=== PATIENT | female | born 1950 | race Caucasian/White ===

== ENCOUNTER 2022-03-24 06:22 | Observation (INO) ==
[2022-03-24] MEDS ORDERED: Clindamycin 900 MG/50 ML 900 MG/50 ML IV.SOLN IVPB ONE (06:44)
[2022-03-24] MEDS ORDERED: Ringers Solution, Lactated 1,000 ML IVC SCH (06:45)
[2022-03-24] MEDS ORDERED: *HR* HYDROmorphone PF 0.5 MG/0.5 ML SYRINGE IVP PRN (06:50)
[2022-03-24] MEDS ORDERED: Ondansetron 4 MG/2 ML VIAL IVP PRN ×2 (06:50→14:48)
[2022-03-24] MEDS ORDERED: *HR* OxyCODONE Immed Rel 5 MG TABLET PO ONE (07:00)
[2022-03-24] MEDS ORDERED: Acetaminophen IV 1,000 MG/100 ML BAG IVPB ONE (07:00)
[2022-03-24] MEDS ORDERED: Famotidine 20 MG/2 ML VIAL IVP ONE (07:00)
[2022-03-24] MEDS ORDERED: tiZANidine 4 MG TABLET PO SCH (07:00)
[2022-03-24] MEDS ORDERED: Pregabalin 75 MG CAPSULE PO ONE (07:00)
[2022-03-24] MEDS ORDERED: *HR* Rocuronium Bromide 50 MG/5 ML VIAL ONE (07:04)
[2022-03-24] MEDS ORDERED: Ondansetron 4 MG/2 ML VIAL ONE (07:04)
[2022-03-24] MEDS ORDERED: Lidocaine HCL 4 ML Topical Solution (Laryng-O-Jet Kit Sterile Pak) TP ONE (07:04)
[2022-03-24] MEDS ORDERED: Lidocaine -MPF 2% 5 ML VIAL ONE (07:04)
[2022-03-24] MEDS ORDERED: *HR* Succinylcholine 200 MG/10 ML VIAL IVP ONE (07:04)
[2022-03-24] MEDS ORDERED: Sugammadex Sodium 200 MG/2 ML VIAL IV ONE (07:04)
[2022-03-24] MEDS ORDERED: *HR* Propofol 200 MG/20 ML VIAL IVP ONE (07:04)
[2022-03-24] MEDS ORDERED: *HR* Remifentanil 2 MG VIAL IVP ONE (07:08)
[2022-03-24] MEDS ORDERED: EPHEDrine 50 MG/ML VIAL ONE (07:23)
[2022-03-24] MEDS ORDERED: Vancomycin 1,000 MG VIAL ONE (07:45)
[2022-03-24] MEDS ORDERED: *HR* FentaNYL (PF) 100 MCG/2 ML VIAL ONE (08:18)
[2022-03-24] MEDS ORDERED: *HR* Vasopressin 20 UNIT/ML VIAL ONE (08:22)
[2022-03-24] MEDS ORDERED: *HR* HYDROMORPHONE 2 MG/ML VIAL ONE (12:23)
[2022-03-24] MEDS: *HR* FentaNYL (PF) 100 MCG/2 ML VIAL IVP PRN ×3 (13:16→13:40)
[2022-03-24] MEDS ORDERED: Ondansetron ODT 4 MG TAB.RAPDIS SL PRN (14:48)
[2022-03-24] MEDS ORDERED: Acetaminophen 325 MG TABLET PO PRN (14:48)
[2022-03-24] MEDS ORDERED: RANITIDINE HCL 150 MG PO PRN (14:48)
[2022-03-24] MEDS ORDERED: Naloxone 0.4 MG/ML INJ IVP PRN (14:48)
[2022-03-24] MEDS: Clindamycin 900 MG/50 ML 900 MG/50 ML IV.SOLN IVPB SCH (15:47)
[2022-03-24] MEDS: *HR* OxyCODONE Immed Rel 5 MG TABLET PO PRN ×2 (15:47→20:26)
[2022-03-24] MEDS: Gabapentin 400 MG CAPSULE PO SCH ×2 (20:17→20:26)
[2022-03-25] MEDS: *HR* HYDROcodone/Acet 5/325 mg TABLET PO PRN (00:02)
[2022-03-25] MEDS: Clindamycin 900 MG/50 ML 900 MG/50 ML IV.SOLN IVPB SCH (00:10)
[2022-03-25] MEDS: Ringers Solution, Lactated 1,000 ML IVC SCH ×3 (00:11→19:42)
[2022-03-25] MEDS: *HR* OxyCODONE Immed Rel 5 MG TABLET PO PRN ×6 (02:02→23:04)
[2022-03-25] MEDS: Furosemide 20 MG TABLET PO SCH (09:08)
[2022-03-25] MEDS: amLODIPine 5 MG TABLET PO SCH (09:08)
[2022-03-25] MEDS: Gabapentin 400 MG CAPSULE PO SCH ×3 (09:08→19:49)
[2022-03-25] MEDS: Lisinopril-HCTZ 20-12.5mg TABLET PO SCH ×2 (09:11→10:25)
[2022-03-25] MEDS: tiZANidine 4 MG TABLET PO PRN (10:32)
[2022-03-26] MEDS: *HR* OxyCODONE Immed Rel 5 MG TABLET PO PRN ×3 (03:09→13:27)
[2022-03-26] MEDS: Furosemide 20 MG TABLET PO SCH (07:41)
[2022-03-26] MEDS: Gabapentin 400 MG CAPSULE PO SCH ×3 (07:42→20:43)
[2022-03-26] MEDS: amLODIPine 5 MG TABLET PO SCH (07:47)
[2022-03-26] MEDS: tiZANidine 4 MG TABLET PO PRN (13:27)
[2022-03-26] MEDS: Ringers Solution, Lactated 1,000 ML IVC SCH (16:00)
[2022-03-27] MEDS: *HR* OxyCODONE Immed Rel 5 MG TABLET PO PRN ×3 (01:27→12:01)
[2022-03-27 03:11] VITALS: O2SAT 96
[2022-03-27] MEDS: *HR* HYDROcodone/Acet 5/325 mg TABLET PO PRN (03:58)
[2022-03-27] MEDS: Ringers Solution, Lactated 1,000 ML IVC SCH ×2 (04:48→04:50)
[2022-03-27] MEDS: Furosemide 20 MG TABLET PO SCH (08:00)
[2022-03-27] MEDS: Gabapentin 400 MG CAPSULE PO SCH (08:00)
[2022-03-27] MEDS: amLODIPine 5 MG TABLET PO SCH (08:01)
[2022-03-27] MEDS: Lisinopril-HCTZ 20-12.5mg TABLET PO SCH (08:01)
[2022-03-27 10:54] VITALS: BP 114/53; PULSE 78; TEMP 98.5
== END 2022-03-27 14:00 | disposition home or self-care (01) ==
LOC: SDCAOSI 06:22 → 4WAOSI 06:22
PROVIDERS: ADMIT Orthopaedic Surgery Orthopaedic Surgery of the Spine; ATTEND Orthopaedic Surgery Orthopaedic Surgery of the Spine